=== PATIENT | male | born 1965 | race Caucasian/White ===

== ENCOUNTER 2020-12-11 11:38 | Emergency (ER) | payer OTHER ==
[~2020-12-11] VITALS: Ht 175.3 cm; Wt 71.7 kg
--- NOTE | 2020-12-11 11:50 | NUR ---
FERNANDARAYaima FROM HOME C/O EVAL AND TREATMENT FOR CHEST PAIN X4 DAYS AGO. PT PLACED IN ER BED 2. MONITOR APPLIED. EKG DONE.
--- NOTE | 2020-12-11 11:56 | NUR ---
BLOOD DRAWN FOR LABS. WAITING FOR DR KENDRICK.
--- NOTE | 2020-12-11 12:15 | NUR ---
SEEN BY DR KENDRICK. WAITING FOR FURTHER ORDERS.
[2020-12-11 12:39] LABS: BASOPHILS % (AUTO) 0.9 % (0.0-2.0); EOSINOPHILS % (AUTO) 0.5 % (0.0-6.0); HEMATOCRIT 44 % (39-51); HEMOGLOBIN 14.2 g/dL (13.5-17.5); LYMPHOCYTES # (AUTO) 0.8 K/uL (0.8-4.8); LYMPHOCYTES % (AUTO) 23.6 % (20.0-44.0); MEAN CORPUSCULAR HGB CONC 33 g/dl (31.0-36.0); MEAN CORPUSCULAR VOLUME 87 fL (80-96); MONOCYTES # (AUTO) 0.2 K/uL (0.1-1.30); MONOCYTES % (AUTO) 5.8 % (2.0-12.0); NEUTROPHILS # (AUTO) 2.3 K/uL (1.8-8.9); NEUTROPHILS % (AUTO) 69.2 % (43.0-81.0); PLATELET COUNT (AUTO) 221 K/uL (150-450); WHITE BLOOD COUNT (AUTO) 3.4 K/uL (4.3-11.0)
--- NOTE | 2020-12-11 12:40 | NUR ---
RADIOLOGY CALLED TO F/U ON CHEST XRAY
--- NOTE | 2020-12-11 12:43 | NUR ---
RADIOLOGY AT BEDSIDE
[2020-12-11 12:49] LABS: CARBON DIOXIDE 28 mmol/L (21-32); CHLORIDE 106 mmol/L (98-107); CREATININE 1.2 mg/dL (0.6-1.3); GLUCOSE 93 mg/dL (74-106); POTASSIUM 3.7 mmol/L (3.5-5.1); SODIUM SERUM 142 mmol/L (136-145); UREA NITROGEN, BLOOD 15 mg/dL (7-18)
--- NOTE | 2020-12-11 13:23 | NUR ---
IV removed. Catheter intact and site benign. Pressure and 4x4 applied to site. No bleeding noted.Patient discharged to home in stable condition. Written and verbal after care instructions given. Patient verbalizes understanding of instruction.
[2020-12-11 13:26] VITALS: BP 137/85
== END 2020-12-11 13:27 | disposition home or self-care (01) ==
LOC: ER 11:53
DX: R07.89 Other chest pain (principal); R00.1 Bradycardia, unspecified
CPT/HCPCS: 36415; 71045-TC; 80048-TC; 84484-TC; 85025-TC